=== PATIENT | female | born 1990 | race Hispanic/Latino ===

== ENCOUNTER 2024-11-02 20:41 | Emergency (ER) | payer SELFPAY ==
[~2024-11-02] VITALS: Ht 167.6 cm; Wt 78.5 kg
[2024-11-02 20:54] VITALS: BP 139/88; PULSE 118; RESP 18; TEMP 101.2
[2024-11-02] MEDS ORDERED: ondanSETRON 4MG INJ IVP ONE (21:30)
[2024-11-02] MEDS ORDERED: acetaMINOPHEN 500 MG TABLET PO ONE (21:30)
[2024-11-02] MEDS ORDERED: CEFTRIAXONE 2GM VIAL IVPB ONE (21:30)
[2024-11-02] MEDS ORDERED: [UNRECOGNIZED DRUG - OTHER] IV ONE (21:30)
--- NOTE | 2024-11-02 21:35 | ERN ---
ED Note History of Present Illness Stated Complaint: MULT COMP Chief Complaint: Back Pain or Injury Time Seen by MD: 20:42 Time Seen by Midlevel: 20:42 Dictation: The patient is a 34-year-old female with a history of hypertension, cholecystectomy who presents to the emergency department with complaints of shortness a spotting knees, fevers, nausea and nonbloody vomiting, left flank pain, burning urination onset . Patient denies any diarrhea, denies constipation. Allergies: Coded Allergies: No Known Drug Allergies (Unverified Allergy, Unknown, 11/02/24) Past Medical History Past Medical History: Hypertension, Other Additional Past Medical Hx: ADHD Surgical History: None RN Note Reviewed/Agreed w/PFSH: Yes Review of System Dictation Constitutional: Negative for and weight loss positive for fever, chills Eyes: Negative for injury, pain,redness, and discharge ENT: Negative for injury,pain or swelling Cardiovascular: Negative for chest pain, palpitations, and edema Respiratory: Negative for shortness of breath, cough, and wheezing, Abdomen/GI: Negative for diarrhea, and constipation positive for abdominal pain, nausea, vomiting, Back: Negative for injury and pain positive for left flank pain : Negative for injury, bleeding and discharge positive for burning urination MS/Extremity: Negative for injury and deformity Skin: Negative for rash, and discoloration Neuro: Negative for headache, weakness, numbness, tingling, and seizure Psych: Negative for suicide ideation, homicidal ideation, and hallucinations Initial Vital Sign VS Vital Signs Date Time Temp Pulse Resp B/P (MAP) Pulse Ox O2 Delivery O2 Flow Rate FiO2 11/02/24 20:54 101.1 118 18 139/88 97 Physical Exam Dictation Vital Signs reviewed General Appearance: Alert, oriented x 3, no acute distress, well developed, nourished. Head and Face: non-traumatic. Eyes: PERRL, pink conjunctivas, eyelid no trauma, anterior chamber with arcus senilis. Ears: Pinnas intact and no signs of trauma or erythema ear canals clear and no discharge TM no erythema Nose: No discharge, no bleeding. Oropharynx: Mouth normal, tongue pink. pharynx clear,no erythema, tonsils no exudates, no abscesses noted, mucous membrane moist Neck: Supple, non-tender, no thyromegaly, no masses, no JVD, no bruits Breast:Deferred Chest:No tenderness, no crepitus, no paradoxical movement, no retractions Lungs:Clear, well-ventilated, symmetric, no rales, no wheezing, no rhonchi, no stridor, good breath sounds bilaterally Heart: Regular rate, regular rhythm, no murmur, no gallops Vascular: no peripheral edema, Abdomen: Soft, positive bowel sounds, nondistended, no guarding, nontender, no rebound, no masses no hepatomegaly, no splenomegaly, no Campbell's sign, no hernias. Rectal: Deferred Genital: Deferred Neurological: Normal speech, motor function intact, sensory function intact Musculoskeletal: Neck nontender, full range of motion, back nontender, full range of motion, left CVA tenderness Extremities: nontender, full range of motion Skin: Color pink, dry, no turgor, no rash, no lacerations, no abrasions, no contusions. Lymphatic: Deferred Results (Laboratory/Radiology) Labs Reviewed?: Yes ED Course ED Course Orders Procedure Category Date Status Time Ondansetron 4mg Inj PHA 11/02/24 Complete (Zofran 4mg Inj) 21:30 Acetaminophen 500mg PHA 11/02/24 Complete Tab (Tylenol 500mg T 21:30 0.9%Nacl 1000ml (Ns PHA 11/02/24 Complete 1000ml) 21:30 Ceftriaxone 2gm Vial PHA 11/02/24 Complete (Rocephin 2gm Inj) 21:30 Current Medications Medications (Trade) Dose Ordered Sig/Justin Route PRN Reason Start Time Stop Time Status Last Admin Dose Admin Acetaminophen (TYLenol 500MG TAB) 1,000 mg ONCE ONCE PO 11/02/24 21:30 11/02/24 21:31 DC Ceftriaxone Sodium (Rocephin 2gm Inj) 2 gm ONCE ONCE IVPB 11/02/24 21:30 11/02/24 21:31 DC Ondansetron HCl (zoFRAN 4MG INJ) 4 mg ONCE ONCE IVP 11/02/24 21:30 11/02/24 21:31 DC Sodium Chloride 2,355 ml @ 785 mls/hr ONCE ONCE IV 11/02/24 21:30 11/03/24 00:05 DC Vital Signs Date Time Temp Pulse Resp B/P (MAP) Pulse Ox O2 Delivery O2 Flow Rate FiO2 11/02/24 20:54 101.1 118 18 139/88 97 Medical Decision Making MDM The patient is a 34-year-old female with a history of hypertension, cholecystectomy who presents to the emergency department with complaints of shortness a spotting knees, fevers, nausea and nonbloody vomiting, left flank pain, burning urination onset . Patient denies any diarrhea, denies constipation. Differential diagnosis: Pyelonephritis, kidney stones, gastroenteritis, dehydration Patient eloped from ER lobby. DX & DISP Disposition: AMA Departure Condition: Stable Referrals: CRISTA MARTINES MD (PCP) I have reviewed the case, and I agree with, Diagnosis and Plan JENNYFER SAUNDERS [facility] Nov 02, 2024 21:35
--- NOTE | 2024-11-02 23:00 | NUR ---
PATIENT NOT PRESENT IN LOBBY, CALLED X3 TIMES
--- NOTE | 2024-11-03 00:02 | NUR ---
CALL MADE TO LOBBY; NO RESPONSE
== END 2024-11-03 00:05 | disposition left against medical advice (07) ==
LOC: EDH 20:41
DX: R06.02 Shortness of breath (principal); R50.9 Fever, unspecified; R11.2 Nausea with vomiting, unspecified; I10 Essential (primary) hypertension
CPT/HCPCS: 99281